=== PATIENT | male | born 1990 | race Caucasian/White ===

== ENCOUNTER 2021-06-08 19:35 | Emergency (ER) | payer OTHER, MEDICAID, SELFPAY ==
[2021-06-08 19:39] VITALS: BP 170/123; PULSE 67; RESP 17; TEMP 36.6; O2SAT 100; BMI 28.3
[2021-06-08] MEDS: ONDANSETRON 4 MG/2 ML INJ IV (20:43)
[2021-06-08] MEDS: PANTOPRAZOLE 40 MG VIAL IV (20:45)
[2021-06-08] MEDS: SODIUM CHLORIDE 0.9% 1,000 ML 1000 ML IV ×2 (21:08→22:23)
[2021-06-08 21:24] LABS: Add Manual Diff / Slide Review NO; Basophils Absolute Auto 0 /uL (0-100); Basophils Percent Auto 0.1 % (0-2); Eosinophils Absolute Auto 0 /uL (0-450); Hematocrit 48.2 % (41-53); Hemoglobin 16.3 g/dL (13.5-17.5); Lymphocytes Absolute Auto 700 /uL (1100-4500); Lymphocytes Percent Auto 6.3 % (25-40); Mean Corpuscular HGB Conc 33.9 % (30-36); Mean Corpuscular Hemoglobin 30.7 PG (26-34); Mean Corpuscular Volume 90.6 fL (80-100); Monocytes Absolute Auto 200 /uL (0-900); Neutrophils Absolute Auto 10500 /uL (1500-7000); Neutrophils Percent Auto 91.6 % (50-75); Platelet Count 272 X10^3/uL (150-400); Red Blood Cell Count 5.32 X10^6/uL (4.5-5.9); Red Cell Distribution Width 12.5 % (11.6-14.8); White Blood Cell Count 11.4 X10^3/uL (4.5-11.0)
[2021-06-08 21:26] LABS: Alanine Aminotransferase 22 IU/L (<50); Albumin 5.2 g/dL (3.5-5.0); Albumin Globulin Ratio 1.4 (1.0-2.8); Alkaline Phosphatase 95 U/L (38-126); Aspartate Aminotransferase 33 IU/L (17-59); Bilirubin Total 0.9 mg/dL (0.2-1.3); Blood Urea Nitrogen 12 mg/dL (9-20); Calcium 9.6 mg/dL (8.4-10.2); Carbon Dioxide 26 mmol/L (22-32); Chloride 102 mmol/L (98-107); Estimated Glomerular Filt Rate > 60 mL/min (>60); Globulin 3.7 g/dL (1.7-4.1); Glucose 150 mg/dL (70-100); HEMOLYSIS < 15 (0-50); Sodium 139 mmol/L (137-145); Total Protein 8.9 g/dL (6.3-8.2)
--- NOTE | 2021-06-08 22:04 | ED.NAVMDI ---
HPI - Nausea/Vomiting/Diarrhea General Chief complaint: Nausea/Vomiting/Diarrhea Stated complaint: Nausea Vomiting X 3 days Time Seen by Provider: 06/08/21 20:21 Source: patient Mode of arrival: Ambulatory History of Present Illness HPI Narrative: 31-year-old male daily smoker with history of opioid abuse has been tapering his naloxone for the past few weeks presents with significant nausea and vomiting over the past few days. He denies any new diet or medications. He denies any recent travel or exposure to ill persons. He was actually feeling significant improvement earlier today but states he had a single alcoholic beverage in vomited again afterwards. He is fatigued and having trouble keeping anything down. He denies any fever or chills and has no pain. He denies chest pain or shortness of breath. He is not dizzy or lightheaded but does feel generally weak. Related Data Home Medications Medication Instructions Recorded Confirmed buprenorphine 8 mg-naloxone 2 mg 1 film BUCCAL DAILY 06/11/20 06/08/21 sublingual film (Suboxone) Previous Rx's Medication Instructions Recorded ondansetron 4 mg disintegrating 4 mg PO TID-QID PRN #10 tab 06/08/21 tablet pantoprazole 40 mg tablet,delayed 40 mg PO DAILY #30 tab 06/08/21 release (Protonix) Allergies Allergy/AdvReac Type Severity Reaction Status Date / Time No Known Drug Allergies Allergy Verified 06/08/21 19:43 Review of Systems Review of Systems Narrative: GENERAL: See HPI HEENT: Denies sinus pain, ear pain, sore throat, difficulty swallowing, dizziness. RESPIRATORY: Denies dyspnea, cough, wheezing, hemoptysis, sputum. CARDIOVASCULAR: Denies chest pain, palpitations, orthopnea, edema, GASTROINTESTINAL: See HPI : Denies dysuria, frequency, incontinence, hematuria, urinary retention. MUSCULOSKELETAL: denies weakness, joint pain, or bony pain SKIN: Denies rash, skin lesions, or other NEUROLOGIC: Denies weakness, headache, numbness, change in speech, confusion, seizures, incoordination. PSYCHIATRIC: No concerning psychosocial issues. 12 point review of systems is negative except for those stated above Patient History Social History Smoking Status: Current every day smoker Smoking Status: Current every day smoker tobacco type: vaping alcohol intake frequency: a few times a week Substance Use Type: marijuana Exam Narrative Exam Narrative: GENERAL: [31 year old patient appears stated age. Well-developed patient, in mild distress. HEAD: Atraumatic. Normocephalic. EYES: Pupils equal round and reactive. Extraocular motions intact. No scleral icterus. No injection or drainage. ENT: Moist mucous member Nose without bleeding, purulent drainage. Throat without erythema, tonsillar hypertrophy or exudate. Airway patent. NECK: Trachea midline. Non tender CARDIOVASCULAR: Regular rate and rhythm without murmurs, gallops, or rubs. RESPIRATORY: Clear to auscultation. Breath sounds equal bilaterally. No wheezes, rales, or rhonchi. GASTROINTESTINAL: Abdomen soft, non-tender, nondistended. EXTREMITIES: No edema or joint tenderness. BACK: Nontender without deformity or crepitance. No flank tenderness. NEURO: AOx3. SKIN: No rash or erythema of visible areas Initial Vital Signs Initial Vital Signs: Vital Signs Temperature 98 F 06/08/21 19:39 Pulse Rate 67 06/08/21 19:39 Respiratory Rate 17 06/08/21 19:39 Blood Pressure 170/123 H 06/08/21 19:39 Pulse Oximetry 100 06/08/21 19:39 Course Orders Ordered: ED Orders 06/08/21 20:30 Complete Blood Count AUTO DIFF Stat Comprehensive Metabolic Panel Stat Discontinued Medications Sodium Chloride (Normal Saline 0.9%) 1,000 mls @ 1,000 mls/hr IV BOLUS ONE Stop: 06/08/21 21:55 Last Infusion: 06/08/21 22:28 Dose: 0 mls/hr Documented by: Admin: 06/08/21 21:08 Dose: 1,000 mls/hr Documented by: RADHA Sodium Chloride (Normal Saline 0.9%) 1,000 mls @ 1,000 mls/hr IV BOLUS ONE Stop: 06/08/21 23:03 Last Infusion: 06/08/21 23:37 Dose: 0 mls/hr Documented by: Admin: 06/08/21 22:23 Dose: 1,000 mls/hr Documented by: RADHA Metoclopramide HCl (Metoclopramide 10 Mg/2 Ml Inj) 10 mg IV NOW ONE Stop: 06/08/21 22:05 Last Admin: 06/08/21 22:23 Dose: 10 mg Documented by: RADHA Ondansetron HCl (Ondansetron 4 Mg/2 Ml Inj) 4 mg IV NOW ONE Stop: 06/08/21 20:37 Last Admin: 06/08/21 20:43 Dose: 4 mg Documented by: RADHA Ondansetron HCl (Ondansetron 4 Mg/2 Ml Inj) 4 mg IV NOW ONE Stop: 06/08/21 20:57 Last Admin: 06/08/21 23:12 Dose: Not Given Documented by: RADHA Pantoprazole Sodium (Pantoprazole 40 Mg Vial) 40 mg IV NOW ONE Stop: 06/08/21 20:43 Last Admin: 06/08/21 20:45 Dose: 40 mg Documented by: RADHA Pantoprazole Sodium (Pantoprazole 40 Mg Vial) 40 mg IV NOW ONE Stop: 06/08/21 20:57 Last Admin: 06/08/21 21:39 Dose: Not Given Documented by: RADHA Reevaluation(s) Reevaluation #1: Patient feeling better after 1st round of therapies, request another bag of fluid prior to oral challenge Time: 22:08 Vital Signs Vital signs: Vital Signs - 8 hr 06/08/21 23:41 Pulse Rate 84 Respiratory Rate 18 Blood Pressure 101/58 L Pulse Oximetry 97 MDM - Nausea/Vomiting/Diarrhea Lab Data Result diagrams: 06/08/21 20:30 06/08/21 20:30 Labs: Lab Results 06/08/21 06/08/21 Range/Units 20:30 20:30 WBC 11.4 H (4.5-11.0) X10^3/uL RBC 5.32 (4.5-5.9) X10^6/uL Hgb 16.3 (13.5-17.5) g/dL Hct 48.2 (41-53) % MCV 90.6 (80-100) fL MCH 30.7 (26-34) PG MCHC 33.9 (30-36) % RDW 12.5 (11.6-14.8) % Plt Count 272 (150-400) X10^3/uL Neut % (Auto) 91.6 H (50-75) % Lymph % (Auto) 6.3 L (25-40) % [place] % (Auto) 2.0 L (3-14) % Eos % (Auto) 0.0 L (2-4) % Baso % (Auto) 0.1 (0-2) % Neut # (Auto) 69300 H (9175-0318) /uL Lymph # (Auto) 700 L (3928-6517) /uL [place] # (Auto) 200 (0-900) /uL Eos # (Auto) 0 (0-450) /uL Baso # (Auto) 0 (0-100) /uL Sodium 139 (137-145) mmol/L Potassium 4.0 (3.4-5.1) mmol/L Chloride 102 (98-107) mmol/L Carbon Dioxide 26 (22-32) mmol/L BUN 12 (9-20) mg/dL Creatinine 0.80 (0.66-1.25) mg/dL Estimated GFR > 60 (>60) mL/min BUN/Creatinine Ratio 15.0 (6-22) Glucose 150 H (70-100) mg/dL Calcium 9.6 (8.4-10.2) mg/dL Total Bilirubin 0.9 (0.2-1.3) mg/dL AST 33 (17-59) IU/L ALT 22 (<50) IU/L Alkaline Phosphatase 95 (38-126) U/L Total Protein 8.9 H (6.3-8.2) g/dL Albumin 5.2 H (3.5-5.0) g/dL Globulin 3.7 (1.7-4.1) g/dL Albumin/Globulin Ratio 1.4 (1.0-2.8) Urine Dip Bedside Urine Glucose Negative Bedside Urine Bilirubin - Negative Bedside Urine Ketone +++ 80 Urine Specific [place] 1.02 Bedside Urine Occult Blood +/- Bedside Urine pH 6 Bedside Urine Protein - Negative Bedside Urine Urobilinogen - Negative Bedside Urine Nitrite - Negative Bedside Urine Leukocytes - Negative Esterase MDM Narrative Medical decision making narrative: Patient has reassuring history and physical exam as well as labs and response to therapies. Patient has no pain, he is tolerating orals and vital signs are stable. There is no indication for hospitalization or advanced imaging. Return precautions discussed and questions answered to his apparent satisfaction Discharge Plan Departure Patient Disposition: Home Clinical Impression: Vomiting Instructions: DI for Dehydration -- Adult, DI for Nausea -- Adult, DI for Vomiting -- Adult Activity Restrictions/Additional Instructions: *You have been diagnosed with [ nausea and vomiting. Your history, physical exam, labs and response to therapies is very reassuring.] *What to do: *Please continue to take your regular medications as directed. [x ] New medication prescriptions sent to your pharmacy: [[facility] ] [ ] New medication written as a paper prescription [ ] No new medications given *Please follow up with your primary care provider in 2-3 days, call for an appointment. Let them know you were seen in the Emergency Department and that we ask that you be seen in follow up. We will electronically transmit a record of today's note if your PCP is in our system *Please consider a clear liquid diet for the next 2 days and then slowly advance as tolerated *If you do not have a primary care provider please contact the [facility] Resource line at [phone]. They will ask some questions about your medical history and help get you set up with a doctor in the community. *Return to Emergency Department if you should have any new, worsening or concerning symptoms, such as [fever greater than 101 F, shaking chills, worsening pain, persistent vomiting or other bothersome symptoms] Prescriptions: New pantoprazole [Protonix] 40 mg tablet,delayed release (DR/EC) 40 mg PO DAILY Qty: 30 0RF ondansetron 4 mg tablet,disintegrating 4 mg PO TID-QID PRN (Reason: nausea and vomiting) Qty: 10 0RF No Action buprenorphine-naloxone [Suboxone] 8-2 mg film 1 film buccal DAILY 0RF Label Comments: 0.5mg daily Referrals: Miscellaneous,Doctor, MD [Primary Care Provider] -
[2021-06-08] MEDS: METOCLOPRAMIDE 10 MG/2 ML INJ IV (22:23)
[2021-06-08 23:41] VITALS: BP 101/58; PULSE 84; RESP 18; O2SAT 97
== END 2021-06-08 23:43 | disposition home or self-care (01) ==
PROVIDERS: Emergency Provider Emergency Medicine
DX: R11.2 Nausea with vomiting, unspecified (principal); F17.290 Nicotine dependence, other tobacco product, uncomplicated
CPT/HCPCS: 36415; 80053; 81003; 85025; 96361; 96374; 96375; 99284; C9113; J2405; J2765

== ENCOUNTER 2021-06-14 10:43 | Emergency (ER) | payer OTHER, MEDICAID, SELFPAY ==
[2021-06-14 11:15] VITALS: BP 142/94; PULSE 56; RESP 18; TEMP 36.8; O2SAT 99; BMI 27.3
[2021-06-14] MEDS: SODIUM CHLORIDE 0.9% 1,000 ML 1000 ML IV ×2 (13:19→15:28)
[2021-06-14] MEDS: ONDANSETRON 4 MG/2 ML INJ IV (13:19)
--- NOTE | 2021-06-14 13:22 | ED.NAVMDI ---
HPI - Nausea/Vomiting/Diarrhea <Sony Kelley PA-C - Last Filed: 06/14/21 17:39> General Chief complaint: Nausea/Vomiting/Diarrhea Stated complaint: continuousy vomiting Time Seen by Provider: 06/14/21 13:14 Source: patient Mode of arrival: Ambulatory History of Present Illness HPI Narrative: 31-year-old male presents to the emergency department due to continued vomiting as he states he is tapering off of his naloxone. Patient was seen here 6 days ago for similar symptoms. Patient states that he has vomited 5 or 6 times a day is ?unable to keep anything down?. Patient used the Zofran prescribed during the previous visit but states that has been ineffective. Denies any blood in the vomit, acute abdominal pain, fevers, or any other concerning signs or symptoms. Related Data Home Medications Medication Instructions Recorded Confirmed buprenorphine 8 mg-naloxone 2 mg 1 film BUCCAL DAILY 06/11/20 06/08/21 sublingual film (Suboxone) buprenorphine 2 mg-naloxone 0.5 mg 1 tab SUBLINGUAL DAILY 06/14/21 06/14/21 sublingual tablet Previous Rx's Medication Instructions Recorded ondansetron 4 mg disintegrating 4 mg PO TID-QID PRN #10 tab 06/08/21 tablet pantoprazole 40 mg tablet,delayed 40 mg PO DAILY #30 tab 06/08/21 release (Protonix) ondansetron 4 mg disintegrating 4 mg PO Q8H PRN 5 Days #15 tab 06/14/21 tablet Allergies Allergy/AdvReac Type Severity Reaction Status Date / Time No Known Drug Allergies Allergy Verified 06/14/21 11:19 Review of Systems <Sony Kelley PA-C - Last Filed: 06/14/21 17:39> Review of Systems Narrative: See HPI Patient History <Sony Kelley PA-C - Last Filed: 06/14/21 17:39> Social History Smoking Status: Current every day smoker Smoking Status: Current every day smoker tobacco type: vaping alcohol intake frequency: a few times a week Substance Use Type: former substance user and marijuana Exam <Sony Kelley PA-C - Last Filed: 06/14/21 17:39> Narrative Exam Narrative: GENERAL: 31 year old patient appears stated age. Well-developed patient, in mild distress. HEAD: Atraumatic. Normocephalic. EYES: Pupils equal round and reactive. Extraocular motions intact. No scleral icterus. No injection or drainage. ENT: Nose without bleeding, purulent drainage. Throat without erythema, tonsillar hypertrophy or exudate. Airway patent. NECK: Trachea midline. Non tender CARDIOVASCULAR: Regular rate and rhythm without murmurs, gallops, or rubs. RESPIRATORY: Clear to auscultation. Breath sounds equal bilaterally. No wheezes, rales, or rhonchi. GASTROINTESTINAL: Abdomen soft, non-tender, nondistended. EXTREMITIES: No edema or joint tenderness. BACK: Nontender without deformity or crepitance. No flank tenderness. NEURO: AOx3. SKIN: No rash or erythema of visible areas Initial Vital Signs Initial Vital Signs: Vital Signs Temperature 98.3 F 06/14/21 11:15 Pulse Rate 56 L 06/14/21 11:15 Respiratory Rate 18 06/14/21 11:15 Blood Pressure 142/94 H 06/14/21 11:15 Pulse Oximetry 99 06/14/21 11:15 <Nan Ortiz DO - Last Filed: 06/14/21 20:49> Initial Vital Signs Initial Vital Signs: Vital Signs Temperature 98.3 F 06/14/21 11:15 Pulse Rate 56 L 06/14/21 11:15 Respiratory Rate 18 06/14/21 11:15 Blood Pressure 142/94 H 06/14/21 11:15 Pulse Oximetry 99 06/14/21 11:15 Course <Sony Kelley PA-C - Last Filed: 06/14/21 17:39> Orders Ordered: ED Orders 06/14/21 13:30 Complete Blood Count AUTO DIFF Stat Comprehensive Metabolic Panel Stat Lipase Stat 06/14/21 16:15 Urine Microscopic Stat Discontinued Medications Diphenhydramine HCl (Diphenhydramine 50 Mg/Ml Vial) 25 mg IV NOW ONE Stop: 06/14/21 13:50 Last Admin: 06/14/21 13:54 Dose: 25 mg Documented by: ELLA Sodium Chloride (Normal Saline 0.9%) 1,000 mls @ 1,000 mls/hr IV BOLUS ONE Stop: 06/14/21 14:06 Last Infusion: 06/14/21 14:45 Dose: 0 mls/hr Documented by: Admin: 06/14/21 13:19 Dose: 1,000 mls/hr Documented by: BAILEE Sodium Chloride (Normal Saline 0.9%) 1,000 mls @ 1,000 mls/hr IV BOLUS ONE Stop: 06/14/21 16:22 Last Infusion: 06/14/21 16:33 Dose: 0 mls/hr Documented by: Admin: 06/14/21 15:28 Dose: 1,000 mls/hr Documented by: BAILEE Metoclopramide HCl (Metoclopramide 10 Mg/2 Ml Inj) 10 mg IV NOW ONE Stop: 06/14/21 13:50 Last Admin: 06/14/21 13:54 Dose: 10 mg Documented by: ELLA Ondansetron HCl (Ondansetron 4 Mg/2 Ml Inj) 4 mg IV NOW ONE Stop: 06/14/21 13:07 Last Admin: 06/14/21 13:19 Dose: 4 mg Documented by: BAILEE Prochlorperazine (Prochlorperazine 10 Mg/2 Ml Vial) 5 mg IV NOW ONE Stop: 06/14/21 17:06 Last Admin: 06/14/21 17:12 Dose: 5 mg Documented by: ELLA Vital Signs Vital signs: Vital Signs - 8 hr 06/14/21 17:17 06/14/21 17:46 Pulse Rate 66 92 H Respiratory Rate 8 L 18 Blood Pressure 182/86 H 138/75 Pulse Oximetry 99 99 <Nan Ortiz DO - Last Filed: 06/14/21 20:49> Orders Ordered: ED Orders 06/14/21 13:30 Complete Blood Count AUTO DIFF Stat Comprehensive Metabolic Panel Stat Lipase Stat 06/14/21 16:15 Urine Microscopic Stat Discontinued Medications Diphenhydramine HCl (Diphenhydramine 50 Mg/Ml Vial) 25 mg IV NOW ONE Stop: 06/14/21 13:50 Last Admin: 06/14/21 13:54 Dose: 25 mg Documented by: ELLA Sodium Chloride (Normal Saline 0.9%) 1,000 mls @ 1,000 mls/hr IV BOLUS ONE Stop: 06/14/21 14:06 Last Infusion: 06/14/21 14:45 Dose: 0 mls/hr Documented by: Admin: 06/14/21 13:19 Dose: 1,000 mls/hr Documented by: BAILEE Sodium Chloride (Normal Saline 0.9%) 1,000 mls @ 1,000 mls/hr IV BOLUS ONE Stop: 06/14/21 16:22 Last Infusion: 06/14/21 16:33 Dose: 0 mls/hr Documented by: Admin: 06/14/21 15:28 Dose: 1,000 mls/hr Documented by: BAILEE Metoclopramide HCl (Metoclopramide 10 Mg/2 Ml Inj) 10 mg IV NOW ONE Stop: 06/14/21 13:50 Last Admin: 06/14/21 13:54 Dose: 10 mg Documented by: ELLA Ondansetron HCl (Ondansetron 4 Mg/2 Ml Inj) 4 mg IV NOW ONE Stop: 06/14/21 13:07 Last Admin: 06/14/21 13:19 Dose: 4 mg Documented by: BAILEE Prochlorperazine (Prochlorperazine 10 Mg/2 Ml Vial) 5 mg IV NOW ONE Stop: 06/14/21 17:06 Last Admin: 06/14/21 17:12 Dose: 5 mg Documented by: ELLA Vital Signs Vital signs: Vital Signs - 8 hr 06/14/21 17:17 06/14/21 17:46 Pulse Rate 66 92 H Respiratory Rate 8 L 18 Blood Pressure 182/86 H 138/75 Pulse Oximetry 99 99 MDM - Nausea/Vomiting/Diarrhea <Sony Kelley PA-C - Last Filed: 06/14/21 17:39> Lab Data Result diagrams: 06/14/21 13:30 06/14/21 13:30 Labs: Lab Results 06/14/21 06/14/21 06/14/21 Range/Units 13:30 13:30 16:15 WBC 11.4 H (4.5-11.0) X10^3/uL RBC 5.38 (4.5-5.9) X10^6/uL Hgb 16.6 (13.5-17.5) g/dL Hct 48.3 (41-53) % MCV 89.9 (80-100) fL MCH 30.9 (26-34) PG MCHC 34.4 (30-36) % RDW 12.4 (11.6-14.8) % Plt Count 260 (150-400) X10^3/uL Neut % (Auto) 90.9 H (50-75) % Lymph % (Auto) 5.4 L (25-40) % [place] % (Auto) 3.2 (3-14) % Eos % (Auto) 0.1 L (2-4) % Baso % (Auto) 0.4 (0-2) % Neut # (Auto) 12587 H (3454-1143) /uL Lymph # (Auto) 600 L (6217-7286) /uL [place] # (Auto) 400 (0-900) /uL Eos # (Auto) 0 (0-450) /uL Baso # (Auto) 0 (0-100) /uL Sodium 143 (137-145) mmol/L Potassium 3.9 (3.4-5.1) mmol/L Chloride 103 (98-107) mmol/L Carbon Dioxide 27 (22-32) mmol/L BUN 14 (9-20) mg/dL Creatinine 0.85 (0.66-1.25) mg/dL Estimated GFR > 60 (>60) mL/min BUN/Creatinine Ratio 16.5 (6-22) Glucose 129 H (70-100) mg/dL Calcium 9.7 (8.4-10.2) mg/dL Total Bilirubin 0.7 (0.2-1.3) mg/dL AST 26 (17-59) IU/L ALT 20 (<50) IU/L Alkaline Phosphatase 93 (38-126) U/L Total Protein 9.0 H (6.3-8.2) g/dL Albumin 5.4 H (3.5-5.0) g/dL Globulin 3.6 (1.7-4.1) g/dL Albumin/Globulin Ratio 1.5 (1.0-2.8) Lipase 33 (23-300) U/L Urine RBC None seen (0-5/HPF) Urine WBC None seen (0-5/HPF) Urine Bacteria None seen (None) Ur Culture Indicated? Cult not indicated Micro UA Comment Microscopic normal Urine Dip Bedside Urine Glucose Negative Bedside Urine Bilirubin - Negative Bedside Urine Ketone +++ 80 Urine Specific [place] 1.020 Bedside Urine Occult Blood + Bedside Urine pH 6 Bedside Urine Protein - Negative Bedside Urine Urobilinogen - Negative Bedside Urine Nitrite - Negative Bedside Urine Leukocytes - Negative Esterase MDM Narrative Medical decision making narrative: This is a 31-year-old thinks the emergency department due to continued nausea and vomiting. He abdomen benign on exam and no concern for acute abdominal processes at this time. Patient's nausea was treated with Benadryl, Zofran, Compazine, and Reglan, fluids. His lab work showed no evidence of any abnormalities that need addressing. Suspect nausea vomiting is secondary to the patient's naloxone tapering which she is doing himself. <Nan Ortiz, DO - Last Filed: 06/14/21 20:49> Lab Data Labs: Lab Results 06/14/21 06/14/21 06/14/21 Range/Units 13:30 13:30 16:15 WBC 11.4 H (4.5-11.0) X10^3/uL RBC 5.38 (4.5-5.9) X10^6/uL Hgb 16.6 (13.5-17.5) g/dL Hct 48.3 (41-53) % MCV 89.9 (80-100) fL MCH 30.9 (26-34) PG MCHC 34.4 (30-36) % RDW 12.4 (11.6-14.8) % Plt Count 260 (150-400) X10^3/uL Neut % (Auto) 90.9 H (50-75) % Lymph % (Auto) 5.4 L (25-40) % [place] % (Auto) 3.2 (3-14) % Eos % (Auto) 0.1 L (2-4) % Baso % (Auto) 0.4 (0-2) % Neut # (Auto) 43551 H (2470-3259) /uL Lymph # (Auto) 600 L (3733-4983) /uL [place] # (Auto) 400 (0-900) /uL Eos # (Auto) 0 (0-450) /uL Baso # (Auto) 0 (0-100) /uL Sodium 143 (137-145) mmol/L Potassium 3.9 (3.4-5.1) mmol/L Chloride 103 (98-107) mmol/L Carbon Dioxide 27 (22-32) mmol/L BUN 14 (9-20) mg/dL Creatinine 0.85 (0.66-1.25) mg/dL Estimated GFR > 60 (>60) mL/min BUN/Creatinine Ratio 16.5 (6-22) Glucose 129 H (70-100) mg/dL Calcium 9.7 (8.4-10.2) mg/dL Total Bilirubin 0.7 (0.2-1.3) mg/dL AST 26 (17-59) IU/L ALT 20 (<50) IU/L Alkaline Phosphatase 93 (38-126) U/L Total Protein 9.0 H (6.3-8.2) g/dL Albumin 5.4 H (3.5-5.0) g/dL Globulin 3.6 (1.7-4.1) g/dL Albumin/Globulin Ratio 1.5 (1.0-2.8) Lipase 33 (23-300) U/L Urine RBC None seen (0-5/HPF) Urine WBC None seen (0-5/HPF) Urine Bacteria None seen (None) Ur Culture Indicated? Cult not indicated Micro UA Comment Microscopic normal Urine Dip Bedside Urine Glucose Negative Bedside Urine Bilirubin - Negative Bedside Urine Ketone +++ 80 Urine Specific [place] 1.020 Bedside Urine Occult Blood + Bedside Urine pH 6 Bedside Urine Protein - Negative Bedside Urine Urobilinogen - Negative Bedside Urine Nitrite - Negative Bedside Urine Leukocytes - Negative Esterase Discharge Plan Departure Patient Disposition: Home Clinical Impression: Vomiting Instructions: DI for Nausea -- Adult, DI for Vomiting -- Adult Activity Restrictions/Additional Instructions: Thank you for coming to the [facility] emergency department today. I am glad we were able to help with her nausea. I prescribed more Zofran for you to take as needed. I recommend to speak with your primary care provider to help the taper off the naloxone the most effectively. I suspect that your nausea and vomiting is due to this tapering. I hope you feel better soon. Prescriptions: New ondansetron 4 mg tablet,disintegrating 4 mg PO Q8H PRN (Reason: nausea and vomiting) 5 Days Qty: 15 0RF No Action buprenorphine-naloxone [Suboxone] 8-2 mg film 1 film buccal DAILY 0RF Label Comments: 0.5mg daily buprenorphine-naloxone 2-0.5 mg tablet, sublingual 1 tab SUBLINGUAL DAILY 0RF Label Comments: DISSOLVE 1 TABLET (2MG) SUBLINGUALLY ONCE A DAY 28 DAYS DUE 04/08 pantoprazole [Protonix] 40 mg tablet,delayed release (DR/EC) 40 mg PO DAILY Qty: 30 0RF ondansetron 4 mg tablet,disintegrating 4 mg PO TID-QID PRN (Reason: nausea and vomiting) Qty: 10 0RF Referrals: Miscellaneous,Doctor, [Primary Care Provider] - <Nan Ortiz DO - Last Filed: 06/14/21 20:49> Cosign ED Attending Cosignature Attestation: I was immediately available in the department for consultation. Documentation has been reviewed.
--- NOTE | 2021-06-14 13:26 | PC.NURSE ---
PT states that he is tapering suboxone. Took his last dose 24-26hours ago. Has been having nausea/vomiting and unable to keep down fluids. Was seen here and has Rx for zofran, but that is not working for him right now, so he came back.
[2021-06-14 13:36] LABS: Add Manual Diff / Slide Review NO; Basophils Absolute Auto 0 /uL (0-100); Basophils Percent Auto 0.4 % (0-2); Eosinophils Absolute Auto 0 /uL (0-450); Eosinophils Percent Auto 0.1 % (2-4); Hematocrit 48.3 % (41-53); Hemoglobin 16.6 g/dL (13.5-17.5); Lymphocytes Absolute Auto 600 /uL (1100-4500); Lymphocytes Percent Auto 5.4 % (25-40); Mean Corpuscular HGB Conc 34.4 % (30-36); Mean Corpuscular Hemoglobin 30.9 PG (26-34); Mean Corpuscular Volume 89.9 fL (80-100); Monocytes Absolute Auto 400 /uL (0-900); Monocytes Percent Auto 3.2 % (3-14); Neutrophils Absolute Auto 10400 /uL (1500-7000); Neutrophils Percent Auto 90.9 % (50-75); Platelet Count 260 X10^3/uL (150-400); Red Blood Cell Count 5.38 X10^6/uL (4.5-5.9); Red Cell Distribution Width 12.4 % (11.6-14.8); White Blood Cell Count 11.4 X10^3/uL (4.5-11.0)
[2021-06-14 13:50] LABS: Alanine Aminotransferase 20 IU/L (<50); Albumin 5.4 g/dL (3.5-5.0); Albumin Globulin Ratio 1.5 (1.0-2.8); Alkaline Phosphatase 93 U/L (38-126); Aspartate Aminotransferase 26 IU/L (17-59); BUN Creatinine Ratio 16.5 (6-22); Bilirubin Total 0.7 mg/dL (0.2-1.3); Blood Urea Nitrogen 14 mg/dL (9-20); Calcium 9.7 mg/dL (8.4-10.2); Carbon Dioxide 27 mmol/L (22-32); Chloride 103 mmol/L (98-107); Estimated Glomerular Filt Rate > 60 mL/min (>60); Globulin 3.6 g/dL (1.7-4.1); Glucose 129 mg/dL (70-100); HEMOLYSIS < 15 (0-50); Lipase 33 U/L (23-300); Potassium 3.9 mmol/L (3.4-5.1); Sodium 143 mmol/L (137-145)
[2021-06-14] MEDS: METOCLOPRAMIDE 10 MG/2 ML INJ IV (13:54)
[2021-06-14] MEDS: diphenhydrAMINE 50 MG/ML VIAL 25 MG IV (13:54)
[2021-06-14 16:46] LABS: Bacteria Urine None Seen; Culture Indicated Urine Cult Not Indicated; RBC Urine None Seen (0-5/HPF); Urine Comments Microscopic Normal; WBC Urine None Seen (0-5/HPF)
[2021-06-14] MEDS: PROCHLORPERAZINE 10 MG/2 ML VIAL 5 MG IV (17:12)
[2021-06-14 17:17] VITALS: BP 182/86; PULSE 66; RESP 8; O2SAT 99
[2021-06-14 17:46] VITALS: BP 138/75; PULSE 92; RESP 18; O2SAT 99
== END 2021-06-14 17:52 | disposition home or self-care (01) ==
PROVIDERS: Emergency Medicine; Emergency Provider Physician Assistant Medical
DX: R11.2 Nausea with vomiting, unspecified (principal)
CPT/HCPCS: 36415; 80053; 81003; 81015; 83690; 85025; 96361; 96374; 96375; 99283; 99284; J0780; J1200; J2405; J2765